=== PATIENT | female | born 1995 | race American Indian/Alaskan Native ===

== ENCOUNTER 2021-03-29 14:39 | Emergency (ER) | payer SELFPAY ==
[2021-03-29] MEDS ORDERED: LIDOCAINE (1%) 10 MG/1 ML VIAL 20 ML MDV INFILTRATI ONE (15:47)
--- NOTE | 2021-03-29 16:11 | XRay Report ---
RIGHT HAND 4 VIEW(S) INDICATION / CLINICAL INFORMATION: right thumb laceration from glass COMPARISON: None available. FINDINGS: BONES / JOINT(S): No acute fracture or subluxation. No significant arthritis. SOFT TISSUES: No significant abnormality. No radiopaque foreign body. ADDITIONAL FINDINGS: None. Signer Name: Kishore Palumbo MD Signed: 03/29/2021 4:07 PM Workstation Name: [id number]
--- NOTE | 2021-03-29 17:18 | Emergency Department Report ---
- General Chief Complaint: Wound/Laceration Stated Complaint: RT HAND INJURY/CUT Time Seen by Provider: 03/29/21 15:17 Source: patient Mode of arrival: Ambulatory Limitations: No Limitations - History of Present Illness Initial Comments: Patient is a 25-year-old female presents emergency room complaints of a laceration to the right thumb that occurred just prior to arrival. Patient states that she was washing dishes and accidentally broke a glass and cut her thumb. She is still able to move the thumb. She denies any numbness or weakness. She states initially there was bleeding but it resolved after placing bandages. She states her tetanus immunization was in 2019. No past medical history. No allergies to medications. - Related Data Allergies Allergy/AdvReac Type Severity Reaction Status Date / Time No Known Allergies Allergy Unverified 03/29/21 15:16 ED Review of Systems ROS: Stated complaint: RT HAND INJURY/CUT Other details as noted in HPI Comment: All other systems reviewed and negative ED Past Medical Hx - Past Medical History Previous Medical History?: Yes Hx Asthma: Yes - Surgical History Past Surgical History?: No ED Physical Exam - General Limitations: No Limitations General appearance: alert, in no apparent distress - Head Head exam: Present: atraumatic, normocephalic - Eye Eye exam: Present: normal appearance - ENT ENT exam: Present: mucous membranes moist - Extremities Exam Extremities exam: Present: other (3 cm laceration present to the right thumb dorsal surface, no active bleeding, no muscle/tendon involvement, no foreign body, neurovascularly intact, FROM) - Neurological Exam Neurological exam: Present: alert, oriented X3 - Psychiatric Psychiatric exam: Present: normal affect, normal mood - Skin Skin exam: Present: warm, dry ED Course Vital Signs 03/29/21 03/29/21 15:02 17:59 Temperature 97.8 F Pulse Rate 61 66 Respiratory 16 14 Rate Blood Pressure 100/39 Blood Pressure 102/61 [Right] O2 Sat by Pulse 99 100 Oximetry - Laceration /Wound Repair Right Finger Wound Location: upper extremity (right dorsal thumb) Wound Length (cm): 3 Wound's Depth, Shape: superficial Wound Explored: clean Irrigated w/ Saline (ccs): 100 Betadine Prep?: Yes Anesthesia: 1% Lidocaine Volume Anesthetic (ccs): 3 Wound Debrided: moderate Wound Repaired With: sutures Suture Size/Type: 4:0, proline Number of Sutures: 5 Layer Closure?: No Sterile Dressing Applied?: Yes Progress: Verbal consent obtained by patient Wound irrigated with saline and thoroughly scrubbed with Betadine, no obvious foreign bodies identified, no muscle or tendon involvement, 3 cc of 1% lidocaine without epinephrine used anesthetic, Betadine prep again, sterile drapes applied, sterile gloves worn, 4-0 Prolene used for skin closure, 5 sutures placed, patient tolerated well, no complications, bleeding controlled, sterile dressing applied ED Medical Decision Making - Radiology Data Radiology results: report reviewed Ordering Physician: ANTONIO VARELA Date of Service: 03/29/21 Procedure(s): XR hand 3+V RT Accession Number(s): [id number] cc: ANTONIO VARELA Fluoro Time In Minutes: RIGHT HAND 4 VIEW(S) INDICATION / CLINICAL INFORMATION: right thumb laceration from glass COMPARISON: None available. FINDINGS: BONES / JOINT(S): No acute fracture or subluxation. No significant arthritis. SOFT TISSUES: No significant abnormality. No radiopaque foreign body. ADDITIONAL FINDINGS: None. Signer Name: Kishore De La Fuente MD Signed: 03/29/2021 4:07 PM Workstation Name: [id number] Transcribed By: SB Dictated By: KISHORE DE LA FUENTE MD Electronically Authenticated By: KISHORE DE LA FUENTE MD Signed Date/Time: 03/29/211606 DD/ 05 TD/TT: - Medical Decision Making Patient is a 25-year-old female presents emergency room complaints of a laceration to the right thumb that occurred just prior to arrival. Patient states that she was washing dishes and accidentally broke a glass and cut her thumb. She is still able to move the thumb. She denies any numbness or weakness. She states initially there was bleeding but it resolved after placing bandages. She states her tetanus immunization was in 2019. No past medical history. No allergies to medications. Vitals are normal. On exam:3 cm laceration present to the right thumb dorsal surface, no active bleeding, no muscle/tendon involvement, no foreign body, neurovascularly intact, FROM. X-ray right hand: BONES / JOINT(S): No acute fracture or subluxation. No significant arthritis. SOFT TISSUES: No significant abnormality. No radiopaque foreign body. ADDITIONAL FINDINGS: None. Laceration repaired per procedure note without any complications. Advised patient Please keep area clean, dry, covered. May wash with antibacterial soap and water pat dry. No hot tub, no pool, no soaking water. Showering is fine. Follow-up with your primary care doctor. Sutures need to be removed in 10 to 14 days. Return to emergency room for any new or worsening symptoms. Critical care attestation.: If time is entered above; I have spent that time in minutes in the direct care of this critically ill patient, excluding procedure time. ED Disposition Clinical Impression: Laceration of right thumb Qualifiers: Encounter type: initial encounter Damage to nail status: without damage Foreign body presence: without foreign body Qualified Code(s): S61.011A - Laceration without foreign body of right thumb without damage to nail, initial encounter Disposition: HOME / SELF CARE / HOMELESS Is pt being admited?: No Does the pt Need Aspirin: No Condition: Stable Instructions: Laceration Care, Adult Additional Instructions: Please keep area clean, dry, covered. May wash with antibacterial soap and water pat dry. No hot tub, no pool, no soaking water. Showering is fine. Follow-up with your primary care doctor. Sutures need to be removed in 10 to 14 days. Return to emergency room for any new or worsening symptoms. Referrals: MEGHANN MORRISON MD [Staff Physician] - 3-5 Days [facility] [Provider Group] - 3-5 Days Forms: Work/School Release Form(ED) Time of Disposition: 17:17 Print Language: VIET[place]ESE
[2021-03-29 18:00] VITALS: BP 102/61
== END 2021-03-29 17:59 | disposition home or self-care (01) ==
LOC: ED 14:39
DX: S61.011A Laceration without foreign body of right thumb without damage to nail, initial encounter (principal); J45.909 Unspecified asthma, uncomplicated; W25.XXXA Contact with sharp glass, initial encounter; Y93.89 Activity, other specified; Y92.89 Other specified places as the place of occurrence of the external cause; Y99.8 Other external cause status
CPT/HCPCS: 99283

== ENCOUNTER 2021-04-11 20:05 | Emergency (ER) | payer SELFPAY ==
[2021-04-11 21:30] VITALS: BP 118/69
--- NOTE | 2021-04-11 22:58 | Emergency Department Report ---
Suture/Staple Removal - [facility] Chief Complaint: Laceration/Recheck/Suture Stated Complaint: REMOVE STITCHES When Sutures or Miki Placed: 11-14 Days Ago Wound Location: Healed dorsal right thumb laceration wound with sutures in place ED Review of Systems ROS: Stated complaint: REMOVE STITCHES Other details as noted in HPI Constitutional: denies: chills, fever Eyes: denies: eye pain, eye discharge, vision change ENT: denies: ear pain, throat pain Respiratory: denies: cough, shortness of breath, wheezing Cardiovascular: denies: chest pain, palpitations Endocrine: no symptoms reported Gastrointestinal: denies: abdominal pain, nausea, diarrhea Genitourinary: denies: urgency, dysuria, discharge Musculoskeletal: other (Mild dorsal right thumb healed laceration wound with sutures in place). denies: back pain, joint swelling Skin: other (Healed dorsal right thumb laceration with sutures in place). denies: rash, lesions Neurological: denies: headache, weakness, paresthesias Psychiatric: denies: anxiety, depression Hematological/Lymphatic: denies: easy bleeding, easy bruising ED Past Medical Hx - Past Medical History Hx Asthma: Yes - Surgical History Past Surgical History?: No - Social History Smoking Status: Current Every Day Smoker Substance Use Type: Alcohol Suture Removal Exam - Exam General: Vital signs noted. No distress. Alert and acting appropriately. Wound: No Pathologic Erythema, No Tenderness, No Drainage, No Pus, No Wound Dehiscence Other Systems: All other systems reviewed and are unremarkable. ED Course Vital Signs 04/11/21 21:27 Temperature 98.4 F Pulse Rate 56 L Respiratory 16 Rate Blood Pressure 118/69 O2 Sat by Pulse 100 Oximetry ED Recheck MDM - Core Measures AMI Core Measures Followed: No Measure Exclusions: not indicated - Differential Diagnosis Wound Recheck, Suture/Staple Removal Cellulitis; tendinitis; thumb sprain - Medical Decision Making This is a 25-year-old female who presented to the ED for suture removal from a recently sutured dorsal right thumb laceration wound 2 weeks ago. Patient stated that she has been taking pain medication as needed and that she has not had any nausea or vomiting, fever or chills, numbness and tingling or weakness of right hand or right arm. In the ED, patient is alert and oriented x3 and is not in any distress. The sutures on the dorsal right thumb laceration wound that were placed 2 weeks ago are intact and the wound has completely healed. The sutures were removed completely and the patient is able perform active range of motion of the right thumb with no difficulties. Patient is neurovascularly intact on the right thumb and right hand. Patient will discharge home and advised to follow-up with her primary care physician as needed or return to the ED immediately if symptoms get worse. Critical care attestation.: If time is entered above; I have spent that time in minutes in the direct care of this critically ill patient, excluding procedure time. ED Disposition Clinical Impression: Encounter for removal of sutures Disposition: HOME / SELF CARE / HOMELESS Is pt being admited?: No Does the pt Need Aspirin: No Condition: Stable Instructions: Wound Closure Removal, Care After Additional Instructions: Follow-up with your primary care physician as needed. Return to the ED immediately if symptoms get worse. Referrals: [facility] [Provider Group] - as needed Time of Disposition: 23:00 Print Language: ESTONIAN
== END 2021-04-11 23:28 | disposition home or self-care (01) ==
LOC: ED 20:05
DX: S61.011D Laceration without foreign body of right thumb without damage to nail, subsequent encounter (principal); J45.909 Unspecified asthma, uncomplicated; F17.200 Nicotine dependence, unspecified, uncomplicated; X58.XXXD Exposure to other specified factors, subsequent encounter